=== PATIENT | male | born 1950 | race Caucasian/White ===

== ENCOUNTER → 2018-05-07 | Outpatient (CLI) | payer MEDICARE, OTHER ==
[~2018-05-07] MED LIST: CRESTOR5 MG PO; HCTZ 25MG25 MG PO; LEVOXYL0.2 MG PO; LIPITOR 10MG10 MG PO; PROSCAR 5MG5 MG PO; ROXICODONE 55 MG/TAB PO; ULTRAM 50MG TAB50 MG PO; XARELTO10 MG PO
== END ==
LOC: COL.LAB 16:28
DX: Z01.812 Encounter for preprocedural laboratory examination (principal)

== ENCOUNTER 2020-02-20 11:51 | Emergency (ER) | payer MEDICARE, OTHER ==
[~2020-02-20] VITALS: Ht 177.8 cm; Wt 86.8 kg
[2020-02-20 11:54] VITALS: TEMP 97.4
[2020-02-20 12:42] LABS: BASO % 0.2 % (0.0-2.0); EOS # 0.1 (0.0-0.7); EOS % 0.9 % (0-4.0); GRAN # 7.7 (1.4-6.5); GRAN % 79.1 % (42.2-75.2); HEMATOCRIT 45.2 % (42.0-52.0); HEMOGLOBIN 15.5 g/dl (13.5-18.0); LYMPH # 1.2 (1.2-3.4); LYMPH % 12.3 % (20.0-51.0); MEAN CELL VOLUME 100 fl (80.0-100.0); MEAN CORPUSCULAR HEMOGLOBIN 34 pg (27.0-31.0); MEAN CORPUSCULAR HGB CONC 34 g/dl (33.0-37.0); MEAN PLATELET VOLUME 9.9 fl (7.4-10.4); MONO # 0.7 (0.1-0.6); MONO % 7.2 % (1.7-9.3); PLATELET COUNT 192 K/mm3 (130-400); RED BLOOD COUNT 4.51 M/mm3 (4.20-5.60); REDCELL DISTRIBUTION WIDTH-CV 12.7 % (11.5-14.5)
[2020-02-20 12:49] LABS: PARTIAL THROMBOPLASTIN TIME 27.3 SECONDS (26.0-37.0)
[2020-02-20 12:54] LABS: ALANINE AMINOTRANSFERASE 29 U/L (4-49); ALBUMIN 4.4 gm/dL (3.5-5.0); ALKALINE PHOSPHATASE 90 U/L (50-136); ANION GAP 8 mmol/L (7-16); AST,SGOT 32 U/L (15-37); BILIRUBIN,TOTAL 0.8 mg/dL (0.0-1.0); BLOOD UREA NITROGEN 28 mg/dL (9-20); CALCIUM 9.4 mg/dL (8.4-10.2); CARBON DIOXIDE 26 mmol/L (22-30); CHLORIDE 107 mmol/L (98-107); CREATININE, serum 1.21 (0.66-1.25); GLUCOSE 139 mg/dL (74-106); LIPASE 67 U/L (23-300); MAGNESIUM 2.1 mg/dL (1.6-2.3); SODIUM 140 mmol/L (137-145); TOTAL PROTEIN 7.6 gm/dL (6.4-8.2)
[2020-02-20 13:06] LABS: TROPONIN-I < 0.012 ng/mL (0.000-0.035)
[2020-02-20 13:07] LABS: INR 1.1 (0.8-3.0); PROTHROMBIN TIME 12.2 SECONDS (9.7-12.8)
[2020-02-20] MEDS ORDERED: PRAVACHOL 40MG40 MG PO (14:28)
[2020-02-20] MEDS ORDERED: HCTZ12.5TAB PO (14:30)
[2020-02-20 16:12] VITALS: BP 148/75; PULSE 58
== END 2020-02-20 16:12 | disposition short-term general hospital (02) ==
LOC: COL.ER 11:51
PROVIDERS: Emergency Medicine
DX: I63.9 Cerebral infarction, unspecified (principal); G46.2 Posterior cerebral artery syndrome; E03.9 Hypothyroidism, unspecified
CPT/HCPCS: J2405; J7030; Q9967

== ENCOUNTER 2020-03-16 10:00 | Outpatient (RCR) | payer MEDICARE, OTHER ==
[~2020-03-16 10:00] MED LIST changes: +HCTZ12.5TAB PO; +PRAVACHOL 40MG40 MG PO
== END 2020-05-29 | disposition home or self-care (01) ==
LOC: MKS.ESL.PT
DX: I63.9 Cerebral infarction, unspecified (principal); I69.328 Other speech and language deficits following cerebral infarction

== ENCOUNTER → 2022-08-23 | Outpatient (CLI) | payer MEDICARE, OTHER | LOC: COL.RAD 09:21 | DX: I63.232 Cerebral infarction due to unspecified occlusion or stenosis of left carotid arteries (principal) ==

== ENCOUNTER → 2023-10-02 | Outpatient (CLI) | payer MEDICARE, OTHER | LOC: COL.RAD 10:46 | DX: M47.26 Other spondylosis with radiculopathy, lumbar region (principal); M48.061 Spinal stenosis, lumbar region without neurogenic claudication ==

== ENCOUNTER → 2023-12-24 | Outpatient (CLI) | payer MEDICARE, OTHER | LOC: MHCPAIN 09:49 | DX: M47.816 Spondylosis without myelopathy or radiculopathy, lumbar region (principal); M54.50 Low back pain, unspecified; Z96.653 Presence of artificial knee joint, bilateral; I10 Essential (primary) hypertension; I25.10 Atherosclerotic heart disease of native coronary artery without angina pectoris; Z79.01 Long term (current) use of anticoagulants | CPT/HCPCS: G0463 ==

== ENCOUNTER → 2024-04-06 | Outpatient (CLI) | payer MEDICARE, OTHER ==
[~2024-04-06] MED LIST changes: +Lidocaine PF 2% (20 MG/ML) 5 ML VIAL ONE; +Midazolam 2 MG/2 ML VIAL ONE; +fentaNYL 50 MCG/ML 2 ML VIAL ONE
== END ==
LOC: MHCPAIN 10:47
DX: M47.817 Spondylosis without myelopathy or radiculopathy, lumbosacral region (principal); M54.50 Low back pain, unspecified
CPT/HCPCS: J0665; J2250; J3010